=== PATIENT | female | born 1990 | race African-American/Black ===

== ENCOUNTER 2018-04-09 09:42 | Emergency (ER) | payer OTHER ==
[2018-04-09 11:35] LABS: BASO # 0.1 10^3/uL (0.0-0.2); BASO % 0.4 % (0.0-1.0); EOS # 0.3 10^3/uL (0.0-0.50); EOS % 2.4 % (0.0-3.0); HEMOGLOBIN 13.8 g/dl (12.0-15.5); IMMATURE GRANULOCYTE % 0.4 % (0-3.0); LYMPH # 2.8 10^3/uL (1.5-6.5); LYMPH % 23.1 % (24.0-44.0); MEAN CORPUSCULAR HEMOGLOBIN 30.6 pg (27.0-33.0); MEAN CORPUSCULAR HGB CONC 35.4 g/dl (32.0-36.5); MEAN CORPUSCULAR VOLUME 86.5 fl (80.0-96.0); MONO % 7.9 % (0.0-5.0); NEUTROPHILS # 7.9 10^3/uL (1.8-7.7); NEUTROPHILS % 65.8 % (36.0-66.0); PLATELET COUNT, AUTOMATED 277 10^3/uL (150-450); RED BLOOD COUNT 4.51 10^6/uL (4.00-5.40); RED CELL DISTRIBUTION WIDTH 11.8 % (11.5-14.5)
[2018-04-09 11:43] LABS: KETONE, URINE AUTO RFX NEGATIVE (NEGATIVE); LEUKOCYTE ESTERASE UR AUTO RFX NEGATIVE (NEGATIVE); MUCUS, URINE RFX SMALL (NEGATIVE); NITRITE, URINE AUTO RFX NEGATIVE (NEGATIVE); RBC, URINE AUTO RFX 2 /HPF (0-3); SPECIFIC GRAVITY UR AUTO RFX 1.016 (1.002-1.035); SQUAM EPITHELIAL CELL UR AURFX 1 /HPF (0-6); WBC, URINE AUTO RFX 1 /HPF (0-3)
[2018-04-09 12:13] LABS: HCG, SERUM QUANTITATIVE 85356 MIU/ML
== END 2018-04-09 13:40 | disposition home or self-care (01) ==
LOC: M ED 09:42
DX: O26.891 Other specified pregnancy related conditions, first trimester (principal); R10.2 Pelvic and perineal pain; O36.8991 Maternal care for other specified fetal problems, unspecified trimester, fetus 1; Z3A.08 8 weeks gestation of pregnancy; Z88.1 Allergy status to other antibiotic agents; Z79.899 Other long term (current) drug therapy
CPT/HCPCS: 76801

== ENCOUNTER 2018-09-03 15:40 | Outpatient (CLI) | payer OTHER ==
[2018-09-03 16:34] LABS: APPEARANCE, URINE HAZY (CLEAR); BACTERIA, URINE AUTO 1+ (NEGATIVE); BILIRUBIN, URINE AUTO NEGATIVE (NEGATIVE); BLOOD, URINE BLOOD NEGATIVE (NEGATIVE); COLOR, URINE YELLOW (YELLOW); GLUCOSE, URINE (UA) AUTO 1+ mg/dL (NEGATIVE); KETONE, URINE AUTO NEGATIVE (NEGATIVE); LEUKOCYTE ESTERASE, URINE AUTO NEGATIVE (NEGATIVE); MUCUS, URINE SMALL (NEGATIVE); NITRITE, URINE AUTO NEGATIVE (NEGATIVE); PROTEIN, URINE AUTO NEGATIVE (NEGATIVE); RBC, URINE AUTO 0 /HPF (0-3); SPECIFIC GRAVITY URINE AUTO 1.009 (1.002-1.035); SQUAMOUS EPITHELIAL CELL UR AU 2 /HPF (0-6); WBC, URINE AUTO 1 /HPF (0-3)
[2018-09-03 16:43] LABS: BEDSIDE GLUCOSE 78 MG/DL (70-105)
== END 2018-09-03 16:55 | disposition home or self-care (01) ==
LOC: M LDO 15:40
DX: O26.891 Other specified pregnancy related conditions, first trimester (principal); R10.2 Pelvic and perineal pain; Z3A.29 29 weeks gestation of pregnancy
CPT/HCPCS: 76815

== ENCOUNTER 2018-10-07 14:13 | Emergency (ER) | payer OTHER ==
[~2018-10-07] VITALS: Ht 165.1 cm; Wt 90.9 kg
[~2018-10-07 14:13] MED LIST: B6 N1TAB PO; PRENTAB7 PO; VALA500T5 PO; VITA100066 PO
[2018-10-07] MEDS ORDERED: MAALOX 30 ML SUSP *UDC PO ONE (14:45)
[2018-10-07] MEDS ORDERED: LIDOCAINE VISCOUS 2% SOLN 15ML UDC SS ONE (14:45)
--- NOTE | 2018-10-07 16:16 | REP ---
Chest one-view HISTORY: Chest pain Comparison: None The lungs are clear. The heart is normal in size. The pulmonary vasculature is normal in appearance. Impression: No acute disease. Electronically Signed by Francisco Pedro MD 10/07/2018 04:07 P
--- NOTE | 2018-10-07 16:28 | REP ---
Duplex extremity venous ultrasound: Bilateral lower extremity. History: Chest pain shortness of breath. Question DVT. Findings: The deep veins are anechoic and fully compressible from the groin to the popliteal fossa in the left and right lower extremity. Color flow imaging is homogeneous. Spectral Doppler interrogation demonstrates intact respiratory variation in flow and normal manual augmentation of flow. There is no evidence of deep vein thrombosis. Impression: Negative bilateral lower extremity duplex venous ultrasound. No evidence of deep vein thrombosis. Electronically Signed by Carson Burns MD 10/07/2018 04:19 P
[2018-10-07 16:55] VITALS: BP 118/56
[2018-10-07] MEDS ORDERED: RANI15TA PO (17:01)
--- NOTE | 2018-10-08 13:56 | ECGEPIP ---
Stationary ECG Study [facility] - ED Test Date: 2018-10-07 Pat Name: FIOR KENNY Department: Room: - Gender: F Long Term: : 1990 Requested By: TRICIA SANDERS PA-C. Order Number: [id number] Reading MD: Joan Garcia Measurements Intervals [place] Rate: 79 P: 50 IL: 155 QRS: 41 QRSD: 86 T: 29 QT: 359 QTc: 413 Interpretive Statements SINUS RHYTHM NO PRIOR FOR COMPARISON Electronically Signed On 10-08-2018 13:55:48 EST by Joan Garcia
== END 2018-10-07 17:06 | disposition home or self-care (01) ==
LOC: M ED 14:13
DX: O26.893 Other specified pregnancy related conditions, third trimester (principal); O99.613 Diseases of the digestive system complicating pregnancy, third trimester; Z3A.34 34 weeks gestation of pregnancy; Z87.891 Personal history of nicotine dependence; Z79.899 Other long term (current) drug therapy; Z88.8 Allergy status to other drugs, medicaments and biological substances

== ENCOUNTER 2018-11-04 20:09 | Outpatient (CLI) | payer OTHER ==
[~2018-11-04] VITALS: Ht 165.1 cm; Wt 92.8 kg
[~2018-11-04 20:09] MED LIST changes: +RANI15TA PO
[2018-11-04 20:30] VITALS: BP 129/75
[2018-11-04] MEDS ORDERED: CLAR10CA3 PO (20:36)
[2018-11-04 21:49] LABS: HEMATOCRIT 35.4 % (36.0-47.0); HEMOGLOBIN 12.3 g/dl (12.0-15.5); MEAN CORPUSCULAR HEMOGLOBIN 31.9 pg (27.0-33.0); MEAN CORPUSCULAR HGB CONC 34.7 g/dl (32.0-36.5); MEAN CORPUSCULAR VOLUME 91.9 fl (80.0-96.0); PLATELET COUNT, AUTOMATED 165 10^3/uL (150-450); RED BLOOD COUNT 3.85 10^6/uL (4.00-5.40); WHITE BLOOD COUNT 10.6 10^3/uL (4.0-10.0)
[2018-11-04 22:00] LABS: INR 1.04; PARTIAL THROMBOPLASTIN TIME 26.9 SECONDS (25.4-37.6); PROTHROMBIN TIME 13.7 SECONDS (12.1-14.4)
[2018-11-04 23:03] VITALS: BP 115/63
== END 2018-11-05 00:50 | disposition home or self-care (01) ==
LOC: M LDO 20:09
PROVIDERS: ATTEND Obstetrics & Gynecology
DX: Z04.3 Encounter for examination and observation following other accident (principal); O99.89 Other specified diseases and conditions complicating pregnancy, childbirth and the puerperium; M54.5 Low back pain; W00.9XXA Unspecified fall due to ice and snow, initial encounter; Y92.89 Other specified places as the place of occurrence of the external cause; Y93.89 Activity, other specified; Y99.8 Other external cause status; Z3A.38 38 weeks gestation of pregnancy
CPT/HCPCS: 36415; 59025; 85027; 85384; 85460; 85610; 85730; G0378; G0463

== ENCOUNTER 2018-11-22 11:10 | Inpatient (IN) | payer OTHER ==
[2018-11-22] VITALS (9 sets, daily range): BP systolic 98–123; BP diastolic 51–67
[~2018-11-22] VITALS: Ht 165.1 cm; Wt 91.6 kg
[~2018-11-22 11:10] MED LIST changes: +CLAR10CA3 PO
[2018-11-22] MEDS ORDERED: EVEN500C2 PO (12:33)
[2018-11-22] MEDS ORDERED: PENICILLIN G POTASSIUM IV 5 MU in D5W MINI-BAG PLUS 100 ML IV STA (12:41)
[2018-11-22] MEDS ORDERED: LACTATED RINGER'S 1000 ML IV STA (12:41)
--- NOTE | 2018-11-22 13:03 | HPEPDOC ---
Obstetrical History & Physical General Date of Admission History of Present Illness 28 yo at 40+5 weeks presented to L&D with complaint of decreased movement. She reports intermittent contractions, nothing intense. She denies any bleeding or leakage of fluid. complicated by a history of HSV and she has been taking valtrex. She has had no recent outbreaks or prodromal symptoms. 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, Herpes simplex virus(HSV) (No current lesions or prodromal symptoms) Past Medical History Medical History Exercise induced asthma Surgical History: [place] teeth Family History Significant Family History: No pertinent family hx Family History Non contributory Social History Marital Status: Family situation: Spouse/partner home Psychosocial History: No pertinent psych hx * Smoker: non-smoker Alcohol: Denies Imunizations Tdap status: current Influenza Status: current Allergies Coded Allergies: Metronidazole (Verified Allergy, Intermediate, hives, 04/09/18) Acetaminophen (Verified Adverse Reaction, Mild, GI UPSET, 11/22/18) Medications Scheduled Evening Cranberry Oil (Evening Cranberry Oil) 500 Mg Cap, 1 CAP PO DAILY Multivitamins/ ( Vitamins 28-0.8 mg) 1 Tab Tab, 1 TAB PO DAILY Pyridoxine HCl (B6 Natural) 100 Mg Tab, 1 TAB PO BID Valacyclovir HCl (Valacyclovir HCl) 500 Mg Tab, 1 TAB PO DAILY Physical Examination Physical Examination GENERAL: Alert and oriented times three. ABDOMEN: Gravid and non-tender to touch. FETUS: Is vertex (VTX) by sterile vaginal examination (SVE) EXTREMITIES: No edema. Bedside TAUS - SIUP in cephalic presentation. MICHAEL 5.5cm. Vital Signs/I&O Vital Signs Date Time Temp Pulse Resp B/P (MAP) Pulse Ox O2 Delivery O2 Flow Rate FiO2 11/22/18 11:23 98.7 107 18 121/67 (85) Laboratory Data Urine Culture: No Growth Pertinent Laboratoy Data Blood Type: O+ RBC Antibody Screen: Negative HIV: Negative Hepatitis B: Negative Hepatitis C: Unknown Rapid Plasma Reagin: Nonreactive Rubella: Immune Varicella: Immune Chlamydia/Gonorrhea: Negative Group B Streptococcus: Positive Quad Screen Test: Unknown Cystic Fibrosis: Negative Glucose Tolerance Test: 100 Anatomy Ultrasound Placenta Location: Anterior Normal Anatomy: Yes Placenta Previa: No Steroid Therapy Steroid Therapy: No Vaginal Examination Dilation: Fingertip Effacement: 50% Station: -3 Cervical Consistency: Soft Cervical Position: Posterior Presentation: Cephalic presentation Position: Vertex (occiput) Assessment Heart Rate (FHR): 140 Variability: Moderate Accelerations: Positive Decelerations: Late (Questionable late decel in early tracing) Tocometer Contractions: Yes Frequency: irregular Duration: less than 60 seconds Strength: palpated as mild Assessment/Plan Assessment 28 yo at 40+5 weeks presented to L&D with decreased movement. Initial tracing non reactive with questionable late decel, though tracing improved after positional change. However, in conjunction with borderline oligohydramnios, I recommend IOL today and Ms. Amaya agrees. Plan Admit and orient. Preparation Room Manager and consent. Diet: Regular. Group B Streptococcus Positive. PCN for prophylaxis. Labs and intravenous (IV) per unit protocol. SBAR given to Dr. Chavez, who will be managing her induction. Will defer induction method to him. Anticipate normal spontaneous delivery (). C-S as appropriate. DO JETT Kaur CHRISTOPHER J. DO Nov 22, 2018 13:03
--- NOTE | 2018-11-22 13:13 | HPEPDOC ---
Obstetrical History & Physical General Date of Admission Nov 22, 2018 at 12:47 History of Present Illness 28 y/o at 40+5 who called me this AM with subjective decr FM, much lass jose e n nl. No VB/LOF. Irreg ctx's. Preg uncomplicated other than h/o HSV, has been on Valtrex, denies any prodromal sx's or lesions. Also, sickle cell carrier but father is not a carrier. H/O remote EI asthma, rarely uses albuterol, 1- 2x/year. 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) Past Medical History Medical History EI asthma, no albuterol in >9 months Surgical History: [place] teeth Family History Significant Family History: No pertinent family hx Social History Marital Status: Family situation: Spouse/partner home Psychosocial History: No pertinent psych hx * Smoker: non-smoker Alcohol: Denies Drugs: denies Abuse Violence Screening Have you been hit/kicked/slapp: No Have you been sexually assault: No Imunizations Tdap status: current Influenza Status: declined Allergies Coded Allergies: Metronidazole (Verified Allergy, Intermediate, hives, 04/09/18) Acetaminophen (Verified Adverse Reaction, Mild, GI UPSET, 11/22/18) Medications Scheduled Evening [place] Oil (Evening [place] Oil) 500 Mg Cap, 1 CAP PO DAILY Multivitamins/ ( Vitamins 28-0.8 mg) 1 Tab Tab, 1 TAB PO DAILY Pyridoxine HCl (B6 Natural) 100 Mg Tab, 1 TAB PO BID Valacyclovir HCl (Valacyclovir HCl) 500 Mg Tab, 1 TAB PO DAILY Physical Examination Physical Examination GENERAL: Alert and oriented times three. ABDOMEN: Gravid and non-tender to touch. FETUS: Is vertex (VTX) by sterile vaginal examination (SVE), fetus is vertex (VTX) by limited TAUS by Dr Regan, Also MICHAEL is 5.5 cm. Cx exam also by Dr Regan is FT/soft/post/high EXTREMITIES: No edema. Vital Signs/I&O Vital Signs Date Time Temp Pulse Resp B/P (MAP) Pulse Ox O2 Delivery O2 Flow Rate FiO2 2/25/19 11:23 98.7 107 18 121/67 (85) Laboratory Data [facility] Laboratory Tests 2 11/22/18 12:55: Serology Scanned Report Hepatitis B Testing Urine Culture: No Growth Pertinent Laboratoy Data Blood Type: O+ RBC Antibody Screen: Negative HIV: Negative Hepatitis B: Negative Hepatitis C: Unknown Rapid Plasma Reagin: Nonreactive Rubella: Immune Varicella: Nonreactive Chlamydia/Gonorrhea: Negative Group B Streptococcus: Positive Quad Screen Test: Declined Cystic Fibrosis: Negative Anatomy Ultrasound Placenta Location: Anterior Normal Anatomy: No Placenta Previa: No Assessment Variability: Minimal Accelerations: Present Decelerations: None Tocometer Contractions: Yes Frequency: irregular Assessment/Plan Assessment 40+5 with decr'd, but present FM. Relative oligohydramnios. FHT is minimal to mod with some improvement with PO intake. Given all of these issues, prudent to induce. Cx is unfavorable, will go for now with PO cytotec. Cook balloon and pitocin when possible. Plan Admit and orient. Table Worker Packager and consent. Diet: reg until active labor, then clears Group B Streptococcus (GBS) pos, will start PCN when in active labor Labs and intravenous (IV) per unit protocol. Counseled on Pitocin and induction of labor (IOL). Lactated Ringers (LR): 1L bolus prior to epidural, o/w 125/hr Anticipate normal spontaneous delivery () C-S as appropriate. NIKKI PEGUERO MD Nov 22, 2018 13:13
[2018-11-22] MEDS: miSOPROStol 50 MCG 1/2 TAB (S0191) PO PRN ×2 (14:04→18:13)
[2018-11-22 14:08] LABS: BASO % 0.3 % (0.0-1.0); EOS # 0.1 10^3/uL (0.0-0.50); EOS % 1.3 % (0.0-3.0); HEMATOCRIT 36.9 % (36.0-47.0); LYMPH # 1.9 10^3/uL (1.5-6.5); LYMPH % 19.5 % (24.0-44.0); MEAN CORPUSCULAR HEMOGLOBIN 32.3 pg (27.0-33.0); MEAN CORPUSCULAR HGB CONC 35.2 g/dl (32.0-36.5); MEAN CORPUSCULAR VOLUME 91.6 fl (80.0-96.0); MONO # 0.5 10^3/uL (0.0-0.8); MONO % 4.9 % (0.0-5.0); NEUTROPHILS # 7.2 10^3/uL (1.8-7.7); NEUTROPHILS % 73.5 % (36.0-66.0); PLATELET COUNT, AUTOMATED 171 10^3/uL (150-450); RED BLOOD COUNT 4.03 10^6/uL (4.00-5.40); WHITE BLOOD COUNT 9.8 10^3/uL (4.0-10.0)
[2018-11-22] MEDS ORDERED: PENICILLIN G POTASSIUM IV 2.5 MU in APPROPRIATE DILUENT 1 EA IV SCH (16:45)
--- NOTE | 2018-11-22 19:58 | IPNPDOC ---
Text Note Date of Service The patient was seen on 11/22/18. NOTE FHT reassuring Now s/p second dose of cytotec ~2 hrs ago External exam shows NEFG and no obvious HSV lesions, of note pt has no sx's and no prodrome as well Cx stretches to 180/-4/vtx Cook balloon placed 70U/30V Plan on transition to pitocin ~1030 Nub/Phen on request Sessions MD MARTELL,[place], I+O VSLake I+O Laboratory Tests 11/22/18 13:59 Red Blood Count 4.03, Mean Corpuscular Volume 91.6, Mean Corpuscular Hemoglobin 32.3, Mean Corpuscular Hemoglobin Concent 35.2, Red Cell Distribution Width 12.6, Neutrophils (%) (Auto) 73.5 H, Lymphocytes (%) (Auto) 19.5 L, Monocytes (%) (Auto) 4.9, Eosinophils (%) (Auto) 1.3, Basophils (%) (Auto) 0.3, Neutrophils # (Auto) 7.2, Lymphocytes # (Auto) 1.9, Monocytes # (Auto) 0.5, Eo sinophils # (Auto) 0.1, Basophils # (Auto) 0.0 Vital Signs Date Time Temp Pulse Resp B/P (MAP) Pulse Ox O2 Delivery O2 Flow Rate FiO2 11/22/18 18:12 97.9 74 16 104/57 (73) SESSIONS,NIKKI Amaya MD Nov 22, 2018 19:58
[2018-11-22] MEDS ORDERED: OXYTOCIN DRIP 30 UNITS in APPROPRIATE DILUENT 1 EA IV SCH (20:00)
[2018-11-22] MEDS ORDERED: PROMETHAZINE INJ 25 MG/ML VIAL (J2550) IV ONE (20:00)
[2018-11-22] MEDS ORDERED: NALBUPHINE HCL 10 MG/ML AMP (J2300) IM ONE (20:00)
[2018-11-22] MEDS ORDERED: NALBUPHINE HCL 10 MG/ML AMP (J2300) IV ONE (20:00)
[2018-11-22] MEDS: LR 1,000 ML IV SCH (22:09)
[2018-11-23] VITALS (51 sets, daily range): BP systolic 87–129; BP diastolic 50–74
[2018-11-23] MEDS: LR 1,000 ML IV SCH ×4 (00:51→19:08)
[2018-11-23] MEDS ORDERED: ePHEDrine SULFATE 25 MG/5 ML(5MG/ML) SYRINGE IV PRN (09:01)
[2018-11-23] MEDS ORDERED: FENTANYL/ROPIVACAINE/NACL BAG 100 ML EPIDURAL SCH (09:01)
[2018-11-23] MEDS ORDERED: LACTATED RINGER'S 1000 ML IV PRN (09:01)
[2018-11-23] MEDS ORDERED: REFRIGERATOR IV KEYS XX PRN (09:01)
[2018-11-23] MEDS ORDERED: NALOXONE INJ 0.4 MG/1 ML VIAL (J2310) IV PRN (09:01)
[2018-11-23] MEDS ORDERED: EPIDURAL/PCA KEYS XX PRN (09:01)
[2018-11-23] MEDS ORDERED: EPIDURAL COMMENT XX SCH (09:01)
[2018-11-23] MEDS ORDERED: ONDANSETRON 4MG/2ML VIAL (J2405) IV PRN (09:01)
[2018-11-23] MEDS ORDERED: diphenhydrAMINE INJ 50MG/ML VIAL (J1200) IV PRN (09:01)
--- NOTE | 2018-11-23 10:18 | NUR ---
1000 HOURS REVIEW PLAN OF CARE PATIENT 28 YO AT 40 AND 6 ADMITTED WITH DECREASE MOVEMENT HSV RX LAST OUTBREAK 1 TEAR AGO AND GBS POSITIVE. HAD CY TOTEC X 2 DUE TO UNFAVORABLE CERVIX AND DECREASED MICHAEL 5.5 CM HAD ORR BULB AND PITOCIN NOW 12 HOURS LATER CATEGORY 2 WITH DECREASED VARIABILITY WITH OCCASIONAL ACCELERATIONS NO DECELERATIONS REMOVED ORR BULB CERVIX THICK HIGH 2 CM SOFT LONG NOT WELL APPLIED PLAN OF CARE D/C PITOCIN START PENICILLIN IN 4 HOURS AROM AND REASSESSMENT PATIENT AND EXPRESSED UNDERSTANDING PLAN OF CARE
[2018-11-23] MEDS ORDERED: PENICILLIN G POTASSIUM IV 5 MU in D5W MINI-BAG PLUS 100 ML IV STA (10:21)
[2018-11-23] MEDS: PENICILLIN G POTASSIUM IV 2.5 MU in APPROPRIATE DILUENT 1 EA IV SCH ×2 (14:30→18:30)
--- NOTE | 2018-11-23 14:57 | NUR ---
1500 review 4 hours post pcn now vertex no change posterior thick - 4 arom clear liquor Plan augment Pitocin up to 4 munits reassessment 2 hours
--- NOTE | 2018-11-23 18:24 | NUR ---
1830 hours review progress adequate contractions category 1 strip clear liquor no change in cervix 1-2 cm high not well applied thick soft Plan increase Pitocin reevaluate 2 hours
[2018-11-23] MEDS ORDERED: FENTANYL 2MCG/ML ROPIVACAINE 0.2% IN 0.9% NACL 100ML IVBAG As Ordered ONE (20:02)
[2018-11-24] VITALS (11 sets, daily range): BP systolic 104–140; BP diastolic 52–64
[2018-11-24] MEDS: PENICILLIN G POTASSIUM IV 2.5 MU in APPROPRIATE DILUENT 1 EA IV SCH (00:24)
[2018-11-24] MEDS ORDERED: BICITRA 30ML SOLN UDC PO ONE (01:30)
[2018-11-24] MEDS ORDERED: BUPIVACAINE HCL 0.25% 10 ML VIAL SC ONE (01:30)
[2018-11-24] MEDS ORDERED: AZITHROMYCIN INJ 500 MG, VIAL MATE ADAPTER 1 EACH in D5W 250 ML IV ONE (01:30)
--- NOTE | 2018-11-24 01:33 | NUR ---
2100 review progress has epidural and now increase Pitocin vertex in pelvis -3 station 3 cm soft mid position safe to proceed
--- NOTE | 2018-11-24 01:36 | NUR ---
0130 am Pitocin at 12 munits and decreased variability adequate contractions no change in cervix or descent since arrest of dilatation and descent reviewed option with patient re primary cs reviewed risk hemorrhage infection pe rforation remote blood transfusion remote hysterectomy for bleeding remote laceration and or admission to nicu expressed understanding signed consent 20 minutes discussion
[2018-11-24] MEDS ORDERED: LIDOCAINE 2% W/EPIN INJ 20ML **PRES FREE As Ordered ONE (01:38)
[2018-11-24] MEDS ORDERED: OXYTOCIN INJ 10 UNITS/ML VIAL (J2590) As Ordered ONE (01:40)
[2018-11-24] MEDS ORDERED: ACETAMINOPHEN 650 MG SUPP PR SCH (02:00)
[2018-11-24] MEDS ORDERED: ONDANSETRON 4MG/2ML VIAL (J2405) As Ordered ONE (02:32)
[2018-11-24] MEDS ORDERED: PHENYLephrine HCL 500 MCG/5 ML (100MCG/ML) SYRINGE (J2370) As Ordered ONE (02:36)
[2018-11-24] MEDS ORDERED: MORPHINE PRES-FREE INJ 10 MG/10 ML VIAL (J2274) As Ordered ONE (02:43)
[2018-11-24] MEDS ORDERED: KETOROLAC 60 MG/2 ML VIAL (J1885) As Ordered ONE (02:45)
[2018-11-24 02:49] LABS: CORD GAS ABE A -3.6; CORD GAS HCO3 A 21.1 MEQ/L; CORD GAS O2 SAT A 76.3 %; CORD GAS PCO2 A 37.5 mmHg; CORD GAS PH A 7.369 UNITS; CORD GAS PO2 A 34.7 mmHg; CORD GAS TCO2 A 22.3 MEQ/L
[2018-11-24 02:50] LABS: CORD GAS ABE V -4.1; CORD GAS HCO3 V 20.5 MEQ/L; CORD GAS O2 SAT V 76.2 %; CORD GAS PCO2 V 35.9 mmHg; CORD GAS PH V 7.374 UNITS; CORD GAS PO2 V 34.3 mmHg; CORD GAS SBC V 20.6 MEQ/L; CORD GAS TCO2 V 21.6 MEQ/L
[2018-11-24] MEDS ORDERED: ONDANSETRON 4MG/2ML VIAL (J2405) IV PRN ×2 (03:14→03:45)
[2018-11-24] MEDS ORDERED: METOCLOPRAMIDE INJ 10MG/2ML VIAL (J2765) IV PRN (03:14)
[2018-11-24] MEDS ORDERED: NALOXONE INJ 0.4 MG/1 ML VIAL (J2310) IV PRN ×2 (03:14)
[2018-11-24] MEDS ORDERED: diphenhydrAMINE INJ 50MG/ML VIAL (J1200) IV PRN (03:14)
[2018-11-24] MEDS ORDERED: NALBUPHINE HCL 10 MG/ML AMP (J2300) IV PRN (03:45)
[2018-11-24] MEDS ORDERED: ANUSOL HC CREAM 30GM TOP PRN (03:45)
[2018-11-24] MEDS ORDERED: RHOGAM 300 MCG (1500 IU) INJ (J2790) IM SCH (03:45)
[2018-11-24] MEDS ORDERED: PERCOCET 5MG/325MG TAB PO PRN (03:45)
[2018-11-24] MEDS ORDERED: DOCUSATE SODIUM 100 MG CAP PO PRN (03:45)
[2018-11-24] MEDS ORDERED: fentaNYL 100 MCG/2 ML INJECTION (J3010) IV PRN (03:45)
[2018-11-24] MEDS ORDERED: MOM 30ML SUSPENSION UDC PO PRN (03:45)
[2018-11-24] MEDS ORDERED: METHYLERGONOVINE MALEATE 0.2 MG TAB PO PRN (03:45)
[2018-11-24] MEDS ORDERED: MEASLES,MUMPS,RUBELLA VACCINE INJ (MMR-II) (90707) SC SCH (03:45)
[2018-11-24] MEDS ORDERED: MEPERIDINE INJ 25 MG/ML VIAL (J2175) IV PRN (03:45)
[2018-11-24] MEDS ORDERED: HYDROMORPHONE HCL 0.5 MG/ 0.5 ML SYRINGE (J1170 PER 1) IV PRN (03:45)
[2018-11-24] MEDS ORDERED: OXYTOCIN DRIP 30 UNITS in APPROPRIATE DILUENT 1 EA IV ONE (03:45)
[2018-11-24] MEDS ORDERED: OXYTOCIN 30 UNITS IN 0.9% NaCl 500ML IV BAG (J2590) As Ordered ONE (03:53)
[2018-11-24] MEDS ORDERED: medroxyPROGESTERone ACET IM SUSP 150 MG/ML VIAL (J1050) IM SCH (04:00)
--- NOTE | 2018-11-24 06:48 | IPN ---
DATE: 11/24/2018 This patient and requested circumcision of their male . After discussing risks and benefits of circumcision, the medical and nonmedical indications, penile block and aftercare, expressed understanding of penile block and aftercare, signed and witnessed the consent form. We await clearance by the body wirer. 20 minutes. All questions were answered.
[2018-11-24] MEDS: PRENATAL VITAMINS CHEWABLE TABLET PO SCH (07:47)
[2018-11-24] MEDS: KETOROLAC 30 MG/ML VIAL (J1885) IV SCH ×3 (07:49→20:54)
[2018-11-24] MEDS: NALBUPHINE HCL 10 MG/ML AMP (J2300) IV PRN ×2 (13:40→18:13)
--- NOTE | 2018-11-24 14:58 | RO ---
DATE OF PROCEDURE: 11/24/2018 PREOPERATIVE DIAGNOSES: Failure to descend. Failure to dilate. Nonreassuring heart tones. POSTOPERATIVE DIAGNOSES: Failure to descend. Failure to dilate. Nonreassuring heart tones. OPERATION PROPOSED: Primary section. OPERATION PERFORMED: Primary section. SURGEON: Kevin Modi MD GRINDER TENDER: Dr. Grant Ho for retraction, extraction, and visualization. ANESTHESIA: Spinal plus local anesthetic for intraperitoneal procedures. ESTIMATED BLOOD LOSS: 200 mL After adequate time out, prepped and draped in the supine position, a Arana catheter in the bladder draining clear urine, acetaminophen suppository 1300 mg per rectum, sequentials on board, and appropriate antibiotics preoperatively, a Pfannenstiel incision was made two fingerbreadths above the symphysis pubis, passing through abdominal layers securing hemostasis. Opening the peritoneal cavity a low-transverse incision was made into the uterus. Clear liqua was noted. We delivered a live male using a shoehorn technique with one blade of the forceps in order to elevate the baby out of the abdomen, a male weighing 7 pounds 0 ounces, 3170 grams, scores of eight and nine at 1 and 5 minutes respectfully. Arterial pH 7.36, base excess -3.6, venous pH 7.37, base excess -4.1. Placenta delivered spontaneously thereafter. Three-vessels in cord. Membranes and tissues intact. The uterus contracted well down on Pitocin. The lower segment was swept nicely with no evidence of placenta retained membranes. The lower segment was oversewn in two layers imbricating the second layer and reperitonealization was performed. With instrument pad count correct, both ovaries and tubes appeared to be normal, the abdomen was then closed with running stitch for the perineum, same for the fascia, interrupted with subcu, Dexon to the skin. Marcaine 0.25% 10 mL, spray and Telfa and the patient was sent to recovery in good condition.
[2018-11-24] MEDS: PERCOCET 5MG/325MG TAB PO PRN (16:15)
[2018-11-25] MEDS: NALBUPHINE HCL 10 MG/ML AMP (J2300) IV PRN (00:27)
[2018-11-25] MEDS ORDERED: diphenhydrAMINE 25 MG CAP As Ordered ONE (00:45)
[2018-11-25] MEDS ORDERED: diphenhydrAMINE 25 MG CAP PO PRN (00:45)
[2018-11-25 02:00] VITALS: BP 111/59
[2018-11-25] MEDS: IBUPROFEN 800 MG TAB PO SCH ×3 (04:27→21:26)
[2018-11-25] MEDS: PERCOCET 5MG/325MG TAB PO PRN ×4 (04:28→22:08)
[2018-11-25 06:00] VITALS: BP 109/53
[2018-11-25 07:08] LABS: HEMATOCRIT 31.3 % (36.0-47.0); MEAN CORPUSCULAR HEMOGLOBIN 31.8 pg (27.0-33.0); MEAN CORPUSCULAR HGB CONC 35.1 g/dl (32.0-36.5); MEAN CORPUSCULAR VOLUME 90.5 fl (80.0-96.0); PLATELET COUNT, AUTOMATED 158 10^3/uL (150-450); RED BLOOD COUNT 3.46 10^6/uL (4.00-5.40); WHITE BLOOD COUNT 19.5 10^3/uL (4.0-10.0)
[2018-11-25] MEDS: PRENATAL VITAMINS CHEWABLE TABLET PO SCH (09:30)
[2018-11-25 10:00] VITALS: BP 120/64
--- NOTE | 2018-11-25 12:55 | IPN ---
DATE: 11/25/2018 day #1 and postoperative day #1. 28-year-old, 2, now para 1, who was admitted at 40 and 5 weeks of gestation because of decreased movement for induction of labor. She had a primary section because of failure to dilate, failure to descend and nonreassuring heart tones. She had a live male infant 7 pounds 0 ounces or 3170 grams and Apgars of 8 and 9 at one and five minutes respectively. Cord was around the body tight times one. Arterial pH 7.36, base excess -3.6; venous pH 7.37, base excess -4.1. She did have HSV, last attack was a year ago and was prophylactically on Valtrex, not required at the present time. Admitting hemoglobin was 13.0, hematocrit 36.9 and platelets were 171. day #1 hemoglobin 11.0, hematocrit 31.3 and platelets were 158. Her vital signs today show blood pressure is 120/64, respirations 20, pulse 72, and temperature 98.1. We discussed phlebitis, cystitis, mastitis, endometritis and cellulitis; diet, exercise and pain management; perineal, breast and wound care. The patient is planning on having a Depot shot prior to discharge and will follow-up at 3 months with subsequent injection. The rest of the examination was unremarkable. She is normocephalic, atraumatic. Neck full range of motion. Pupils equal and reactive to light. Distal pulses symmetric. No evidence of deep vein thrombosis (DVT), pulmonary embolism (PE) or superficial phlebitis. Chest is clear bilaterally at bases. No wheezes or rhonchi. No abdominal tenderness. Abdomen soft, uterus two below. Lochia is moderate. Four quadrant bowel sounds are noted. Incision is clean and dry. She has no rashes, lesions or pruritus. No arthralgia or myalgia. No complaint of joint pain. No complaint cough, wheezes, shortness of breath or dyspnea on exertion. Neuro complete. No urgency or frequency. No nausea, vomiting, diarrhea or constipation. No diabetic issues. The patient is presently breast-feeding and is doing well. Plan discharge for tomorrow morning. All questions were answered.
[2018-11-25 14:00] VITALS: BP 125/59
[2018-11-25 18:00] VITALS: BP 109/59
[2018-11-25 22:00] VITALS: BP 111/57
[2018-11-26] MEDS: PERCOCET 5MG/325MG TAB PO PRN ×3 (02:22→10:06)
[2018-11-26] MEDS: IBUPROFEN 800 MG TAB PO SCH ×2 (04:38→12:28)
[2018-11-26 05:45] VITALS: BP 115/65
[2018-11-26] MEDS: PRENATAL VITAMINS CHEWABLE TABLET PO SCH (08:49)
[2018-11-26] MEDS ORDERED: COLA100C5 PO (09:25)
[2018-11-26] MEDS ORDERED: OXYC1TAB23 PO (09:25)
[2018-11-26] MEDS ORDERED: ANUS2.5C2 TOP (09:25)
[2018-11-26] MEDS ORDERED: IBUP-1114 PO (09:25)
--- NOTE | 2018-11-26 15:17 | DSES ---
DATE OF ADMISSION: 11/22/2018 DATE OF DISCHARGE: 11/26/2018 This is a 28-year-old 2, now para 1, admitted at 40 and 5 with decreased movement, induction of labor. Ended up with a primary section. Male , 7 pounds 0 ounces, 3170 grams, scores of 8 and 9 at one and five minutes, respectively. Arterial pH 7.36, base excess -3.6, venous pH 7.37, base excess -4.1. Risk factors: She had herpes simplex virus (HSV. Was covered with Valtrex. Requested Depo-Provera for control. Will be dispositioned prior to this discharge with medications. We discussed phlebitis, cystitis, mastitis, metritis, cellulitis, diet, exercise, pain management, perineal breast, and wound care. On discharge, her blood pressure is 115/65, respirations 18, pulse 82, temperature 98.6. Her admitting hemoglobin was 13.0, hematocrit 36.9, and platelets were 171. Discharge hemoglobin 11.0, hematocrit 31.3, and platelets were 158. The rest of the examination unremarkable. Normocephalic, atraumatic. Neck: Full range of motion. Pupils equal and reactive to light. Distal pulses are symmetric. No evidence of deep vein thrombosis (DVT), pulmonary embolism (PE), or superficial phlebitis. Lungs are clear bilaterally to bases. No wheezes or rhonchi. No costovertebral angle (CVA) tenderness. Abdomen is soft. Uterus 2 below. Lochia is moderate. Four-quadrant bowel sounds are noted. Incision is clean and dry. No rashes, lesions, or pruritus. No arthralgia, myalgia. No complaints of cough, wheeze, shortness of breath, or dyspnea on exertion. No bleeding. Neurologic complete. No incontinency, urgency, or frequency. No nausea, vomiting, diarrhea, or constipation. In summary, we have a term gestation, delivered a live- male . PLAN: Discharge questions were answered regarding circumcision and management as well as wound care. The patient was discharged with medication. Followup with 2-week incision check at [facility], 6-week checkup.
== END 2018-11-26 13:00 | disposition home or self-care (01) | DRG 773 ==
LOC: M LDO 11:10 → M LDI 12:47 → M OBS 11-24 04:57
PROVIDERS: ADMIT Obstetrics & Gynecology; ATTEND Obstetrics & Gynecology
PROC: 3E0P7GC Introduction of Other Therapeutic Substance into Female Reproductive, Via Natural or Artificial Opening (ICD-10-PCS; 2018-11-22)
PROC: 10D00Z1 Extraction of Products of Conception, Low, Open Approach (ICD-10-PCS; principal; 2018-11-24 02:07)
DX: O41.03X0 Oligohydramnios, third trimester, not applicable or unspecified (principal); O36.8130 Decreased fetal movements, third trimester, not applicable or unspecified; O48.0 Post-term pregnancy; Z3A.40 40 weeks gestation of pregnancy; O62.0 Primary inadequate contractions; O76 Abnormality in fetal heart rate and rhythm complicating labor and delivery; Z37.0 Single live birth

== ENCOUNTER 2019-05-02 09:53 | Emergency (ER) | payer OTHER ==
[~2019-05-02] VITALS: Ht 165.1 cm; Wt 86.4 kg
[~2019-05-02 09:53] MED LIST changes: +ANUS2.5C2 TOP; -B6 N1TAB PO; +COLA100C5 PO; +EVEN500C2 PO; +IBUP-1114 PO; +OXYC1TAB23 PO; +VITA100T14 PO
[2019-05-02 09:54] VITALS: BP 131/57
[2019-05-02] MEDS ORDERED: VALA1TAB64 (10:08)
[2019-05-02] MEDS ORDERED: LORA-674 (10:08)
[2019-05-02] MEDS ORDERED: KEFL500C17 PO (10:29)
[2019-05-02] MEDS ORDERED: IBUP80TA PO (10:33)
== END 2019-05-02 10:35 | disposition home or self-care (01) ==
LOC: M ED 09:53
DX: J02.9 Acute pharyngitis, unspecified (principal); J03.90 Acute tonsillitis, unspecified; Z79.899 Other long term (current) drug therapy; Z88.6 Allergy status to analgesic agent; Z88.8 Allergy status to other drugs, medicaments and biological substances